=== PATIENT | male | born 1960 | race Caucasian/White ===

== ENCOUNTER → 2024-09-22 | Outpatient (CLI) | payer MEDICAID, SELFPAY ==
--- NOTE | 2024-09-22 | XR_ITS ---
Examination: Knee, right , 3 views Technique: Knee AP, lateral, oblique 3 views Date and time of exam: September 22, 2024 1159 hours INDICATIONS: Right knee pain beginning 3 days ago. FINDINGS: Mild to moderate osteoarthritis medial patellofemoral joints Small knee effusion No fracture IMPRESSION: Mild to moderate osteoarthritis medial patellofemoral joints
== END | disposition home or self-care (01) ==
PROVIDERS: PCP Nurse Practitioner Family; Referring Provider Nurse Practitioner Family; Visit Provider Nurse Practitioner Family
DX: M25.561 Pain in right knee (principal); M17.11 Unilateral primary osteoarthritis, right knee
CPT/HCPCS: 73562